=== PATIENT | male | born 1995 | race Caucasian/White ===

== ENCOUNTER 2016-06-18 12:44 | Emergency (ER) | payer OTHER ==
[2016-06-18] MEDS ORDERED: CEPHALEXIN 250 MG CAPSULE PO STA (13:01)
[2016-06-18] MEDS ORDERED: DEXAMETHASONE 10 MG/ML VIAL PO STA (13:01)
[2016-06-18] MEDS ORDERED: HYDROcod/ACETAM 5/325 MG TABLET PO STA (13:01)
[2016-06-18] MEDS ORDERED: CHERRY SYRUP 10 ML UDC PO ONE (13:04)
[2016-06-18] MEDS ORDERED: HYDROcod/ACETAM 5/325 MG TABLET ONE (13:04)
[2016-06-18] MEDS ORDERED: DEXAMETHASONE 10 MG/ML VIAL ONE ×2 (13:04→13:05)
[2016-06-18] MEDS ORDERED: CEPHALEXIN 250 MG CAPSULE PO ONE (13:04)
== END 2016-06-18 13:21 | disposition home or self-care (01) ==
DX: J02.0 Streptococcal pharyngitis (principal)
CPT/HCPCS: 99283; A9270

== ENCOUNTER 2017-10-20 18:09 | Emergency (ER) | payer OTHER ==
--- NOTE | 2017-10-20 18:47 | ED Physician Documentation ---
PD HPI URI - Stated complaint Stated Complaint: SORE THROAT - Chief complaint Chief Complaint: Heent - History obtained from History obtained from: Patient - History of Present Illness Timing - onset: How many days ago (2) Timing duration: Days (2) Timing details: Gradual onset, Still present Associated symptoms: Fever, Sore throat, Swollen nodes. No: Ear pain, Nasal congestion, Dry cough Contributing factors: No: Travel, Immunocompromised Similar symptoms before: Has not had sx before Recently seen: Not recently seen Review of Systems Constitutional: reports: Fever, Myalgias Nose: denies: Rhinorrhea / runny nose, Congestion Throat: reports: Sore throat, Swollen tonsils Cardiac: denies: Chest pain / pressure Respiratory: denies: Dyspnea, Cough GI: denies: Nausea, Vomiting, Diarrhea Skin: denies: Rash PD PAST MEDICAL HISTORY - Past Medical History Past Medical History: No HEENT: Other - Past Surgical History Past Surgical History: No - Present Medications Home Medications: Ambulatory Orders Medication Instructions Recorded Confirmed Guaifenesin/Pseudoephedrne HCl 1 each PO BID PRN #20 tab.er.12h 03/16/17 [Mucinex D ER 600-60 mg Tablet] Cephalexin [Keflex] 500 mg PO TID #20 capsule 10/20/17 Dexamethasone [Decadron] 4 mg PO DAILY #5 tablet 10/20/17 Ibuprofen [Motrin] 600 mg PO TID #20 tab 10/20/17 Tramadol HCl 50 mg PO Q6H PRN #15 tablet 10/20/17 - Allergies Allergies/Adverse Reactions: Allergies Allergy/AdvReac Type Severity Reaction Status Date / Time No Known Drug Allergies Allergy Verified 06/18/16 12:47 - Social History Does the pt smoke?: No Smoking Status: Never smoker Does the pt drink ETOH?: No Does the pt have substance abuse?: No - Immunizations Immunizations are current?: Yes - POLST Patient has POLST: No PD ED PE NORMAL - Vitals Vital signs reviewed: Yes - General General: Alert and oriented X 3, No acute distress, Well developed/nourished - HEENT HEENT: No: Pharynx benign (redness with swelling and exudate of tonsils, without peritonsillar edema. ) - Neck Neck: Supple, no meningeal sign, Other (anterior adenopathy) - Cardiac Cardiac: RRR, No murmur - Respiratory Respiratory: Clear bilaterally - Abdomen Abdomen: Soft, Non tender - Derm Derm: Normal color, Warm and dry, No rash - Extremities Extremities: No tenderness to palpate, Normal ROM s pain Results - Vitals Vitals: Oxygen O2 Source Room air - Labs Labs: Microbiology 10/20/17 18:42 Group A Strep Throat Culture - Final Throat MIXED OROPHARYNGEAL KARSTEN PRESENT. NO BETA STREP PRESENT IN CULTURE. Laboratory Tests 10/20/17 18:42 Group A Strep Rapid Negative PD MEDICAL DECISION MAKING - ED course Complexity details: reviewed results (rapid negative but clinically is highly suspicious for strep with 4/4 centor. ), considered differential, d/w patient - Sepsis Event Vital Signs: Oxygen O2 Source Room air Departure - Departure Disposition: 01 Home, Self Care Clinical Impression: Pharyngitis, acute Qualifiers: Pharyngitis/tonsillitis etiology: unspecified etiology Qualified Code(s): J02.9 - Acute pharyngitis, unspecified Condition: Stable Record reviewed to determine appropriate education?: Yes Instructions: ED Strep Pharyngitis Poss Follow-Up: [facility] Posey [Provider Group] Prescriptions: Cephalexin [Keflex] 500 mg PO TID #20 capsule Dexamethasone [Decadron] 4 mg PO DAILY #5 tablet Ibuprofen [Motrin] 600 mg PO TID #20 tab Tramadol HCl 50 mg PO Q6H PRN #15 tablet PRN Reason: Pain Comments: Your rapid strep test is negative but is still sound suspicious for strep, and so we will start you treating for it pending the culture result in 2 days. If the culture is negative at that point, we can stop antibiotics. Also use some ibuprofen 3 times a day for pain and add Tylenol and/or tramadol if needed for worse pain. Decadron steroid anti-inflammatory will help with the pain and irritation of the throat regardless of viral or bacterial. Recheck if not improving well over the next couple of days. Off work tomorrow due to illness. Forms: Activity restrictions Discharge Date/Time: 10/20/17 19:41
[2017-10-20] MEDS ORDERED: DEXAMETHASONE 10 MG/ML VIAL PO STA (19:02)
[2017-10-20] MEDS ORDERED: IBUPROFEN 600 MG TABLET PO STA (19:02)
[2017-10-20] MEDS ORDERED: ACETAMINOPHEN 325 MG TABLET PO STA (19:05)
[2017-10-20] MEDS ORDERED: cephALEXin 250 MG CAPSULE PO STA (19:07)
[2017-10-20] MEDS ORDERED: traMADol 50 MG TABLET PO STA (19:14)
[2017-10-20] MEDS ORDERED: CHERRY SYRUP 10 ML UDC PO ONE (19:44)
[2017-10-20 19:45] VITALS: BP 154/100
== END 2017-10-20 19:41 | disposition home or self-care (01) ==
LOC: ED 18:09
DX: J02.9 Acute pharyngitis, unspecified (principal)
CPT/HCPCS: 87070; 87430; 99283; A9270

== ENCOUNTER 2018-06-10 19:51 | Emergency (ER) | payer OTHER ==
[2018-06-10] MEDS ORDERED: DEXAMETHASONE 10 MG/ML VIAL PO STA (20:10)
[2018-06-10] MEDS ORDERED: CHERRY SYRUP 10 ML UDC PO ONE (20:16)
--- NOTE | 2018-06-10 20:16 | ED Physician Documentation ---
PD HPI HEENT - Stated complaint Stated Complaint: SORE THROAT - Chief complaint Chief Complaint: Heent - History obtained from History obtained from: Patient - History of Present Illness Timing - onset: How many days ago (2) Timing - duration: Days (2) Timing - details: Gradual onset Pain level max: 3 Pain level now: 3 Severity Comments: mild Location: Throat Improves: Nothing. No: Medication, Heat Worsens: Swalllowing Associated symptoms: Fever, Swollen nodes. No: Cough Review of Systems Ten Systems: 10 systems reviewed and negative Constitutional: reports: Reviewed and negative Eyes: reports: Reviewed and negative Ears: reports: Reviewed and negative Nose: reports: Reviewed and negative Throat: reports: Reviewed and negative Cardiac: reports: Reviewed and negative Respiratory: reports: Reviewed and negative GI: reports: Reviewed and negative : reports: Reviewed and negative Skin: reports: Reviewed and negative Musculoskeletal: reports: Reviewed and negative Neurologic: reports: Reviewed and negative Psychiatric: reports: Reviewed and negative Endocrine: reports: Reviewed and negative Immunocompromised: reports: Reviewed and negative PD PAST MEDICAL HISTORY - Past Medical History Past Medical History: Yes Cardiovascular: None Respiratory: None Neuro: None Endocrine/Autoimmune: None GI: None : None HEENT: Other Psych: None Musculoskeletal: None Derm: None - Past Surgical History Past Surgical History: No Other past surgical history: Reviewed and not pertinent - Present Medications Home Medications: Ambulatory Orders Medication Instructions Recorded Confirmed Amoxicillin 1,000 mg PO DAILY #7 capsule 06/10/18 - Allergies Allergies/Adverse Reactions: Allergies Allergy/AdvReac Type Severity Reaction Status Date / Time No Known Drug Allergies Allergy Verified 06/10/18 19:55 - Living Situation Living Situation: reports: With family Living Arrangement: reports: At home - Social History Does the pt smoke?: No Smoking Status: Never smoker Does the pt drink ETOH?: No Does the pt have substance abuse?: No - Family History Family history: reports: Other (Reviewed and not pertinent) - Immunizations Immunizations are current?: Yes - POLST Patient has POLST: No PD ED PE NORMAL - Vitals Vital signs reviewed: Yes - General General: Alert and oriented X 3, No acute distress - HEENT HEENT: PERRL, Other (Tonsilar erythema, no exudate, tender cervical lymphadenopathy, no uvular deviation) - Neck Neck: Supple, no meningeal sign - Cardiac Cardiac: RRR, No murmur - Respiratory Respiratory: Clear bilaterally - Abdomen Abdomen: Normal bowel sounds, Soft, Non tender, Non distended - Derm Derm: Warm and dry - Extremities Extremities: No deformity - Neuro Neuro: Alert and oriented X 3 - Psych Psych: Normal mood, Normal affect Results - Vitals Vitals: Vital Signs - 24 hr 06/10/18 19:53 Temperature 36.9 C Heart Rate 67 Respiratory 15 Rate Blood Pressure 133/73 H O2 Saturation 97 Oxygen O2 Source Room air - Labs Labs: Laboratory Tests 06/10/18 19:55 Group A Strep Rapid Negative PD MEDICAL DECISION MAKING - ED course Complexity details: reviewed results, re-evaluated patient, considered differential, d/w patient ED course: 23-year-old male presents with sore throat, fever. Vitals unremarkable. Exam notable for tonsillar erythema with no exudates, tender cervical lymphadenopathy. Patient treated empirically for strep with Decadron and discharged with prescription for amoxicillin. Departure - Departure Clinical Impression: Strep pharyngitis Condition: Good Instructions: ED Pharyngitis Strep Poss Ch Prescriptions: Amoxicillin 1,000 mg PO DAILY #7 capsule Comments: Follow-up with PCP within 24 hours. Return with worsening symptoms. Forms: Activity restrictions
[2018-06-10 20:27] VITALS: BP 121/68
== END 2018-06-10 20:27 | disposition home or self-care (01) ==
LOC: ED 19:51
DX: J02.0 Streptococcal pharyngitis (principal)
CPT/HCPCS: 87070; 87430; 99282; 99283; A9270

== ENCOUNTER 2018-08-16 15:43 | Emergency (ER) | payer OTHER ==
[2018-08-16 15:54] VITALS: BP 157/77
--- NOTE | 2018-08-16 16:10 | ED Physician Documentation ---
PD HPI URI - Stated complaint Stated Complaint: SORE THROAT - Chief complaint Chief Complaint: Heent - History obtained from History obtained from: Patient - History of Present Illness Timing - onset: How many days ago (several) Timing duration: Days (several) Timing details: Gradual onset, Still present Associated symptoms: Fever (mild), Sore throat, Swollen nodes. No: Nasal congestion, Rhinorrhea, Dry cough, NVD Contributing factors: Sick contact (strep in others at work) Similar symptoms before: Has not had sx before Recently seen: Not recently seen Review of Systems Constitutional: reports: Fever. denies: Myalgias Nose: denies: Rhinorrhea / runny nose, Congestion Throat: reports: Sore throat, Swollen tonsils Respiratory: denies: Cough GI: denies: Abdominal Pain, Nausea, Vomiting, Diarrhea Skin: denies: Rash, Lesions PD PAST MEDICAL HISTORY - Past Medical History Cardiovascular: None Respiratory: None Neuro: None Endocrine/Autoimmune: None GI: None : None HEENT: Other Psych: None Musculoskeletal: None Derm: None - Past Surgical History Past Surgical History: No - Present Medications Home Medications: Ambulatory Orders Medication Instructions Recorded Confirmed Amoxicillin 1,000 mg PO DAILY #7 capsule 06/10/18 Cephalexin [Keflex] 500 mg PO Q6H #21 capsule 08/16/18 Dexamethasone [Decadron] 4 mg PO DAILY #5 tablet 08/16/18 Tramadol HCl 50 mg PO Q6H PRN #15 tablet 08/16/18 - Allergies Allergies/Adverse Reactions: Allergies Allergy/AdvReac Type Severity Reaction Status Date / Time No Known Drug Allergies Allergy Verified 06/10/18 19:55 - Social History Does the pt smoke?: No Smoking Status: Never smoker Does the pt drink ETOH?: No Does the pt have substance abuse?: No - Immunizations Immunizations are current?: Yes - POLST Patient has POLST: No PD ED PE NORMAL - Vitals Vital signs reviewed: Yes - General General: Alert and oriented X 3, No acute distress, Well developed/nourished - HEENT HEENT: No: Pharynx benign (tonsils swollen with redness but no exudate. No peritonsillar swelling. There is anterior adenopathy. ) - Neck Neck: Supple, no meningeal sign - Cardiac Cardiac: RRR, No murmur - Respiratory Respiratory: Clear bilaterally - Derm Derm: Normal color, Warm and dry Results - Vitals Vitals: Vital Signs - 24 hr 08/16/18 15:51 Temperature 36.7 C Heart Rate 64 Respiratory 18 Rate Blood Pressure 157/77 H O2 Saturation 97 Oxygen O2 Source Room air - Labs Labs: Laboratory Tests 08/16/18 15:52 Group A Strep Rapid Negative PD MEDICAL DECISION MAKING - ED course Complexity details: considered differential (does not have exudative look but is red and swollen with anterior adenopathy and no general URI symptoms. ), d/w patient Departure - Departure Disposition: Home, Self Care Clinical Impression: Acute pharyngitis Qualifiers: Pharyngitis/tonsillitis etiology: unspecified etiology Qualified Code(s): J02.9 - Acute pharyngitis, unspecified Condition: Stable Record reviewed to determine appropriate education?: Yes Instructions: ED Strep Pharyngitis Poss Follow-Up: LA WARD, DO [Primary Care Provider] - Prescriptions: Cephalexin [Keflex] 500 mg PO Q6H #21 capsule Dexamethasone [Decadron] 4 mg PO DAILY #5 tablet Tramadol HCl 50 mg PO Q6H PRN #15 tablet PRN Reason: Pain Comments: Stay well-hydrated. Decadron steroid for inflammation daily for the next several days. Cephalexin antibiotic for presumed bacterial infection at least pending cultures in a few days. Tylenol or ibuprofen as needed for pain. Add tramadol if needed for worse pain. Discharge Date/Time: 08/16/18 17:26
[2018-08-16] MEDS ORDERED: cephALEXin 250 MG CAPSULE PO STA (16:31)
[2018-08-16] MEDS ORDERED: DEXAMETHASONE 10 MG/ML VIAL PO STA (16:31)
[2018-08-16] MEDS ORDERED: CHERRY SYRUP 10 ML UDC PO ONE (16:31)
[2018-08-16] MEDS ORDERED: ACETAMINOPHEN 325 MG TABLET PO STA (16:31)
[2018-08-20 20:51] LABS: C.TRACHOMATIC RNA TMA THROAT NOT DETECTED; N.GONORRHOEAE RNA TMA THROAT NOT DETECTED
== END 2018-08-16 17:26 | disposition home or self-care (01) ==
LOC: ED 15:43
DX: J02.9 Acute pharyngitis, unspecified (principal)
CPT/HCPCS: 87070; 87430; 87491; 99282; 99283; A9270